=== PATIENT | female | born 1940 | race Native Hawaiian/Other Pacific Islander ===

== ENCOUNTER 2016-08-12 14:28 | Emergency (ER) | payer OTHER, BC ==
[~2016-08-12] VITALS: Ht 160 cm; Wt 92.5 kg
[~2016-08-12 14:28] MED LIST: ALPR0.5T24 PO; CLONIDINE0.1 MG PO; LOVASTATIN20 MG PO; METFORMIN ER1000 MG PO; MICARDIS H80 MG/25 M PO; TRAM50TA PO; ZOLP10TA2 PO
[2016-08-12] MEDS ORDERED: LIPITOR10 MG PO (15:24)
[2016-08-12] MEDS ORDERED: LIPITOR20 MG PO (15:24)
[2016-08-12 17:08] LABS: PLATELET COUNT 175 K/uL (152-353)
[2016-08-12 17:17] LABS: SODIUM 135 mmol/L (136-145)
[2016-08-12 18:45] VITALS: BP 157/79; TEMP 99.8
== END 2016-08-12 18:49 | disposition home or self-care (01) ==
LOC: ED 14:28
DX: J20.9 Acute bronchitis, unspecified (principal); E11.9 Type 2 diabetes mellitus without complications
CPT/HCPCS: 80053; 83036; 85027; 87081; 87804; 87880; 93005; 96365; 96375; 99284; J0696; J1100; J1885

== ENCOUNTER 2016-08-16 14:49 | Emergency (ER) | payer OTHER, BC ==
[~2016-08-16] VITALS: Ht 160 cm; Wt 92.1 kg
[~2016-08-16 14:49] MED LIST changes: +LIPITOR10 MG PO; +LIPITOR20 MG PO
[2016-08-16 16:05] LABS: PLATELET COUNT 217 K/uL (152-353)
[2016-08-16 16:08] LABS: POTASSIUM 3.7 mmol/L (3.6-5.2); SODIUM 137 mmol/L (136-145)
[2016-08-16] MEDS ORDERED: DIPH2.5T76 PO (16:44)
[2016-08-16 16:50] VITALS: BP 138/80; TEMP 99
== END 2016-08-16 16:44 | disposition home or self-care (01) ==
LOC: ED 14:49
DX: K52.89 Other specified noninfective gastroenteritis and colitis (principal)
CPT/HCPCS: 36415; 80053; 81000; 85027; 96360; 99284

== ENCOUNTER 2016-08-21 09:30 | Outpatient (CLI) | payer OTHER, BC ==
[~2016-08-21 09:30] MED LIST changes: +DIPH2.5T76 PO
== END 2016-08-21 23:01 | disposition home or self-care (01) ==
LOC: RAD 09:30
DX: M25.511 Pain in right shoulder (principal)

== ENCOUNTER 2017-05-24 09:39 | Outpatient (CLI) | payer OTHER, BC ==
[2017-05-24 10:36] LABS: PLATELET COUNT 215 K/uL (152-353)
[2017-05-24 11:23] LABS: SODIUM 140 mmol/L (136-145)
== END 2017-05-24 19:06 | disposition home or self-care (01) ==
LOC: LABW 09:39
PROVIDERS: Internal Medicine
DX: E11.9 Type 2 diabetes mellitus without complications (principal); R82.71 Bacteriuria; N39.0 Urinary tract infection, site not specified
CPT/HCPCS: 36415; 80053; 80061; 81000; 82043; 82570; 83036; 84439; 84443; 85027; 87077; 87086; 87088; 87186

== ENCOUNTER 2017-07-16 12:19 | Outpatient (CLI) | payer OTHER, BC | END 2017-07-16 20:29 | disposition home or self-care (01) | LOC: RAD 12:19 | DX: M25.512 Pain in left shoulder (principal) ==

== ENCOUNTER 2017-12-21 10:04 | Outpatient (CLI) | payer OTHER, BC ==
[2017-12-21 10:26] LABS: PLATELET COUNT 229 K/uL (152-353)
[2017-12-21 10:49] LABS: POTASSIUM 4.1 mmol/L (3.6-5.2)
== END 2017-12-21 23:11 | disposition home or self-care (01) ==
LOC: LABW 10:04
PROVIDERS: Internal Medicine
DX: E11.9 Type 2 diabetes mellitus without complications (principal); R82.99 Other abnormal findings in urine
CPT/HCPCS: 36415; 80053; 80061; 81000; 82043; 82570; 83036; 84439; 84443; 85027; 87077; 87086; 87088; 87186

== ENCOUNTER 2018-01-28 11:47 | Outpatient (CLI) | payer OTHER, BC ==
[2018-01-28 12:34] LABS: PLATELET COUNT 290 K/uL (152-353)
[2018-01-28 13:10] LABS: POTASSIUM 4.2 mmol/L (3.6-5.2)
== END 2018-01-28 20:32 | disposition home or self-care (01) ==
LOC: RAD 11:47
PROVIDERS: Internal Medicine
DX: J40 Bronchitis, not specified as acute or chronic (principal); J01.10 Acute frontal sinusitis, unspecified; R82.99 Other abnormal findings in urine
CPT/HCPCS: 36415; 80053; 81000; 85027; 87077; 87086; 87088; 87185; 87186

== ENCOUNTER 2018-02-20 07:33 | Outpatient (CLI) | payer OTHER, BC ==
[2018-02-20 07:51] LABS: PLATELET COUNT 200 K/uL (152-353)
[2018-02-20 08:29] LABS: POTASSIUM 3.9 mmol/L (3.6-5.2)
== END 2018-02-20 23:59 | disposition home or self-care (01) ==
LOC: LABW 07:33
PROVIDERS: Internal Medicine
DX: E11.9 Type 2 diabetes mellitus without complications (principal)
CPT/HCPCS: 36415; 80053; 81000; 85027

== ENCOUNTER 2018-03-29 10:11 | Outpatient (CLI) | payer OTHER, BC | END 2018-03-29 22:18 | disposition home or self-care (01) | LOC: LABW 10:11 | DX: J45.909 Unspecified asthma, uncomplicated (principal) | CPT/HCPCS: 36415; 82785; 86003 ==

== ENCOUNTER 2018-05-22 16:18 | Outpatient (CLI) | payer OTHER, BC | END 2018-05-22 19:59 | disposition home or self-care (01) | LOC: LAB 16:18 | DX: N39.0 Urinary tract infection, site not specified (principal) | CPT/HCPCS: 87077; 87086; 87088; 87185; 87186 ==

== ENCOUNTER 2018-07-03 14:11 | Outpatient (CLI) | payer OTHER, BC | END 2018-07-03 19:09 | disposition home or self-care (01) | LOC: RAD 14:11 → LAB 14:11 → RAD 19:09 | DX: J40 Bronchitis, not specified as acute or chronic (principal); R30.0 Dysuria | CPT/HCPCS: 87088 ==

== ENCOUNTER 2018-07-12 11:05 | Outpatient (CLI) | payer OTHER, BC | END 2018-07-12 23:22 | disposition home or self-care (01) | LOC: US 11:05 | DX: E11.21 Type 2 diabetes mellitus with diabetic nephropathy (principal); S90.425A Blister (nonthermal), left lesser toe(s), initial encounter; I73.89 Other specified peripheral vascular diseases ==

== ENCOUNTER 2018-07-19 13:31 | Outpatient (CLI) | payer OTHER, BC | END 2018-07-19 19:16 | disposition home or self-care (01) | LOC: LAB 13:31 | DX: N39.0 Urinary tract infection, site not specified (principal) | CPT/HCPCS: 81000; 87088 ==

== ENCOUNTER 2018-08-09 11:23 | Outpatient (CLI) | payer OTHER, BC ==
[2018-08-09 11:57] LABS: PLATELET COUNT 208 K/uL (152-353)
[2018-08-09 12:10] LABS: POTASSIUM 4.1 mmol/L (3.6-5.2)
== END 2018-08-09 22:52 | disposition home or self-care (01) ==
LOC: LABW 11:23
PROVIDERS: Physician Assistant
DX: E11.9 Type 2 diabetes mellitus without complications (principal); E78.5 Hyperlipidemia, unspecified; E55.9 Vitamin D deficiency, unspecified; I10 Essential (primary) hypertension
CPT/HCPCS: 36415; 80053; 80061; 82306; 83036; 84439; 84443; 85027

== ENCOUNTER 2018-09-27 13:20 | Outpatient (CLI) | payer OTHER, BC | END 2018-09-27 19:55 | disposition home or self-care (01) | LOC: MAMMO 13:20 | DX: Z12.31 Encounter for screening mammogram for malignant neoplasm of breast (principal) ==

== ENCOUNTER 2018-11-04 09:29 | Outpatient (CLI) | payer OTHER, BC | END 2018-11-04 19:24 | disposition home or self-care (01) | LOC: RAD 09:29 | DX: M25.512 Pain in left shoulder (principal); M25.561 Pain in right knee ==

== ENCOUNTER 2019-01-07 11:17 | Outpatient (CLI) | payer OTHER, BC | END 2019-01-07 19:15 | disposition home or self-care (01) | LOC: RAD 11:17 | DX: J40 Bronchitis, not specified as acute or chronic (principal) ==

== ENCOUNTER 2019-06-24 16:11 | Outpatient (CLI) | payer OTHER, BC ==
[2019-06-24 16:49] LABS: PLATELET COUNT 233 K/uL (152-353)
== END 2019-06-24 20:04 | disposition home or self-care (01) ==
LOC: RAD 16:11
PROVIDERS: Nurse Practitioner Family
DX: R05 Cough (principal); R06.02 Shortness of breath; R50.9 Fever, unspecified
CPT/HCPCS: 36415; 80053; 85027; 87502

== ENCOUNTER 2021-03-07 14:24 | Outpatient (CLI) | payer BC | END 2021-03-07 21:18 | disposition home or self-care (01) | LOC: RAD 14:24 | PROVIDERS: ATTEND Physician Assistant | DX: M25.511 Pain in right shoulder (principal) ==

== ENCOUNTER 2021-04-21 16:05 | Inpatient (IN) | payer BC ==
[~2021-04-21] VITALS: Ht 160 cm; Wt 89.0 kg
[2021-04-21 20:00] VITALS: BP 127/55; TEMP 98.4
[2021-04-22 00:58] VITALS: BP 136/63; TEMP 98.3; Ht 160 cm; Wt 89.0 kg
[2021-04-22 08:00] VITALS: BP 118/60; TEMP 97.9
[2021-04-22 20:24] VITALS: BP 120/57; TEMP 98.5
[2021-04-23 08:00] VITALS: BP 117/59; TEMP 97.8
[2021-04-23 20:00] VITALS: BP 126/58; TEMP 98.3
[2021-04-24 08:00] VITALS: BP 139/63; TEMP 97.7
[2021-04-24 20:00] VITALS: BP 114/52; TEMP 98.6
[2021-04-25 08:00] VITALS: BP 129/60; TEMP 97.7
[2021-04-25 19:45] VITALS: BP 165/72; TEMP 97.7
[2021-04-26 08:00] VITALS: BP 160/64; TEMP 97.8
[2021-04-26 20:17] VITALS: BP 134/56; TEMP 98.1
[2021-04-27 08:00] VITALS: BP 132/66; TEMP 97.8
[2021-04-27 20:00] VITALS: BP 114/55; TEMP 98
[2021-04-28 08:00] VITALS: BP 120/55; TEMP 97.8
[2021-04-28 20:00] VITALS: BP 112/50; TEMP 97.8
[2021-04-29 08:00] VITALS: BP 167/50; TEMP 97.7
[2021-04-29 20:23] VITALS: BP 120/56; TEMP 98.2
[2021-04-30 08:00] VITALS: BP 159/69; TEMP 98.5
[2021-04-30 20:00] VITALS: BP 131/59; TEMP 98
[2021-05-01 08:00] VITALS: BP 130/56; TEMP 98.2
[2021-05-01 20:00] VITALS: BP 137/63; TEMP 98.3
[2021-05-02 08:00] VITALS: BP 133/61; TEMP 97.8
[2021-05-02 20:00] VITALS: BP 121/52; TEMP 98.4
[2021-05-03 08:00] VITALS: BP 120/53; TEMP 97.8
[2021-05-03 20:00] VITALS: BP 155/68; TEMP 97.5
[2021-05-04 08:00] VITALS: BP 136/54; TEMP 97.8
[2021-05-04 20:00] VITALS: BP 143/58; TEMP 98.1
[2021-05-05 08:00] VITALS: BP 118/52; TEMP 97.7
[2021-05-05 20:13] VITALS: BP 119/54; TEMP 98.7
[2021-05-06 08:30] VITALS: BP 115/52; TEMP 97.4
[2021-05-06 20:00] VITALS: BP 127/70; TEMP 98.2
[2021-05-07 08:00] VITALS: BP 127/59; TEMP 97.8
[2021-05-07 20:00] VITALS: BP 160/57; TEMP 97.8
[2021-05-08 08:00] VITALS: BP 151/81; TEMP 98.7
[2021-05-08 20:00] VITALS: BP 126/55; TEMP 98.6
[2021-05-09 08:00] VITALS: BP 102/47; TEMP 98.5
[2021-05-09 20:01] VITALS: BP 116/56; TEMP 97.9
[2021-05-10 08:00] VITALS: BP 115/48; TEMP 98.6
[2021-05-10 19:00] LABS: POTASSIUM 4.6 mmol/L (3.6-5.2)
[2021-05-10 20:00] VITALS: BP 106/42; TEMP 98.3
[2021-05-11 08:00] VITALS: BP 110/50; TEMP 98.4
[2021-05-11 12:45] LABS: PLATELET COUNT 229 K/uL (152-353)
[2021-05-11 12:58] LABS: POTASSIUM 4.3 mmol/L (3.6-5.2)
[2021-05-11 20:00] VITALS: BP 130/55; TEMP 99.5
[2021-05-12 08:00] VITALS: BP 134/45; TEMP 98.9
[2021-05-12 20:00] VITALS: BP 119/41; TEMP 98.8
[2021-05-13 08:00] VITALS: BP 109/46; TEMP 98.5
== END 2021-05-13 17:15 | disposition home health service (06) | DRG 560 ==
LOC: SWING 16:05 → MED/SURG 18:06
PROVIDERS: Internal Medicine Endocrinology, Diabetes & Metabolism; ADMIT Internal Medicine; ATTEND Internal Medicine
DX: S72.115D Nondisplaced fracture of greater trochanter of left femur, subsequent encounter for closed fracture with routine healing (principal); Z91.81 History of falling; E11.9 Type 2 diabetes mellitus without complications; M62.81 Muscle weakness (generalized); Z74.1 Need for assistance with personal care; I10 Essential (primary) hypertension; G31.84 Mild cognitive impairment of uncertain or unknown etiology; F41.8 Other specified anxiety disorders; E78.2 Mixed hyperlipidemia; F51.04 Psychophysiologic insomnia; R19.7 Diarrhea, unspecified; Z16.24 Resistance to multiple antibiotics; N39.0 Urinary tract infection, site not specified; R53.81 Other malaise; F03.90 Unspecified dementia, unspecified severity, without behavioral disturbance, psychotic disturbance, mood disturbance, and anxiety
CPT/HCPCS: 80048; 81000; 85027; 87077; 87081; 87086; 87088; 87185; 87186; 87324; 87449; J1335; J1885

== ENCOUNTER 2021-05-13 17:19 | Outpatient (CLI) | payer BC | END 2021-05-13 19:39 | disposition home or self-care (01) | LOC: RAD 17:19 | PROVIDERS: ATTEND Orthopaedic Surgery | DX: M25.552 Pain in left hip (principal) ==

== ENCOUNTER 2022-01-19 11:19 | Outpatient (CLI) | payer BC | END 2022-01-19 19:07 | disposition home or self-care (01) | LOC: MAMMO 11:19 | PROVIDERS: ATTEND Nurse Practitioner Family | DX: Z12.31 Encounter for screening mammogram for malignant neoplasm of breast (principal) ==

== ENCOUNTER 2022-02-13 09:58 | Outpatient (CLI) | payer BC | END 2022-02-13 18:58 | disposition home or self-care (01) | LOC: MAMMO 09:58 | PROVIDERS: ATTEND Nurse Practitioner Family | DX: R92.8 Other abnormal and inconclusive findings on diagnostic imaging of breast (principal) ==